=== PATIENT | female | born 1975 | race Caucasian/White ===

== ENCOUNTER 2024-08-23 07:38 | Emergency (ER) | payer OTHER ==
[~2024-08-23] VITALS: Ht 165.1 cm; Wt 69.9 kg
[~2024-08-23 07:38] MED LIST: CEPHALEXIN500 MG PO; CLINDAMYCIN HC300 MG PO; HYDROCODON-ACE1 EA10 PO; IBUPROFEN600 MG PO; MACROBID 100 M100 MG PO; NORCO 5-325 TA1 EACH PO; PYRIDIUM200 MG PO; SULFAMETHOXAZO1 EAC1 PO
[2024-08-23] MEDS ORDERED: SODIUM CHLORIDE 0.9% 1,000 ML IV ONE (08:00)
[2024-08-23] MEDS ORDERED: ACETAMINOPHEN 500 MG TAB PO ONE (08:00)
[2024-08-23] MEDS ORDERED: KETOROLAC TROMETHAMINE 15 MG/ML VIAL IV ONE (08:00)
[2024-08-23 08:09] LABS: BASOPHILS 0.3 % (0-2); EOSINOPHILS 0.2 % (0-6); HEMOGLOBIN 11.2 g/dL (12.0-18.0); LYMPHOCYTES 9.8 % (24-44); MCV 78.3 fl (81-99); NEUTROPHILS 79.7 % (39-80); PLATELET COUNT 229 K/uL (140-440); RBC 4.46 M/ul (4.3-5.7); RDW 17.7 (10.5-15.0)
[2024-08-23 08:25] LABS: ALBUMIN 3.6 g/dL (3.4-5.0); ALBUMIN/GLOBULIN RATIO 1.03 (1.1-2.4); ANION GAP 15.2 (7-21); BILIRUBIN, TOTAL 0.2 mg/dL (0.2-1.0); BUN/CREATININE RATIO 9.09 (6.0-28.6); CALCIUM 8.7 mg/dL (8.5-10.1); CREATININE, SERUM 0.99 mg/dL (0.55-1.02); POTASSIUM 3.2 mmol/L (3.5-5.1); PROTEIN, TOTAL 7.1 g/dL (6.4-8.2)
[2024-08-23 08:28] LABS: LACTIC ACID, BLOOD 1.6 mmol/L (0.4-2.0)
[2024-08-23 08:32] LABS: CORONAVIRUS COVID-19 AG NEGATIVE (NEGATIVE); INFLUENZA A AG POSITIVE (NEGATIVE); INFLUENZA B AG NEGATIVE (NEGATIVE)
[2024-08-23 09:28] VITALS: BP 102/65
== END 2024-08-23 09:29 | disposition home or self-care (01) ==
LOC: ED 07:38
PROVIDERS: Emergency Medicine
DX: J10.1 Influenza due to other identified influenza virus with other respiratory manifestations (principal); F17.200 Nicotine dependence, unspecified, uncomplicated; Z88.0 Allergy status to penicillin
CPT/HCPCS: 36415; 71045; 80053; 83605; 85025; 96374; 99283-25; A9270; J1885; J7030

== ENCOUNTER 2024-08-31 13:13 | Emergency (ER) | payer OTHER ==
[~2024-08-31] VITALS: Ht 165.1 cm; Wt 71.7 kg
--- OUTSIDE RECORDS SUMMARY | 2024-08-31 13:20 | XMS ---
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 EGrazyna VISIT COUNT (12 MO.) [address] TOTAL 3 NOTE: Visits indicate total known visits. ED/UCC VISIT TRACKING (12 MO.) 08/31/2024 13:13 [facility] TYPE: Emergency COMPLAINT: - ANXIETY 08/23/2024 07:38 [facility] [place] TYPE: Emergency COMPLAINT: - COLD SYMPTOMS DIAGNOSES: - Allergy status to penicillin - Fever, unspecified - Influenza due to other identified influenza virus with other respiratory manifestations - Nicotine dependence, unspecified, uncomplicated 03/01/2024 20:05 [facility] TYPE: Emergency DIAGNOSES: 91322. Multiple Complaints [id number]. COVID-19 INPATIENT VISIT TRACKING (12 MO.) No inpatient visits to display in this time frame [email or web address]
[2024-08-31] MEDS ORDERED: ACETAMINOPHEN 500 MG TAB PO ONE (13:45)
[2024-08-31] MEDS ORDERED: predniSONE 20 MG TAB PO ONE (13:45)
[2024-08-31] MEDS ORDERED: IBUPROFEN 600 MG TAB PO ONE (13:45)
[2024-08-31] MEDS ORDERED: PREDNISONE20 MG PO (16:34)
[2024-08-31 16:55] VITALS: BP 139/80
== END 2024-08-31 17:05 | disposition home or self-care (01) ==
LOC: ED 13:13
DX: J04.0 Acute laryngitis (principal); F17.200 Nicotine dependence, unspecified, uncomplicated; Z88.0 Allergy status to penicillin
CPT/HCPCS: 99283; A9270; J7512